=== PATIENT | male | born 1975 | race Hispanic/Latino ===

== ENCOUNTER 2019-09-03 17:04 | Inpatient (IN) ==
[~2019-09-03 17:04] MED LIST: DIPRIVAN 1% ONE; FENTANYL ONE; LUBRIFRESH PM OPH OINTMENT ONE; QUELICIN (DOSE) ONE; ROBINUL ONE; XYLOCAINE-MPF 2% ONE
[2019-09-03] MEDS ORDERED: ZEMURON ONE (17:18)
[2019-09-03] MEDS ORDERED: ROBINUL ONE (17:19)
[2019-09-03] MEDS ORDERED: LR 1,000 ML ONE ×2 (17:37→19:28)
[2019-09-03] MEDS ORDERED: KEFZOL 1 GM/D5W 0 GM/0 ML IVPB ONE (17:37)
[2019-09-03] MEDS ORDERED: VANCOMYCIN 1 GM/NS 1 GM/250 ML IVPB ONE (17:46)
[2019-09-03] MEDS ORDERED: ZOFRAN ONE (18:09)
[2019-09-03] MEDS ORDERED: FENTANYL ONE (18:10)
[2019-09-03] MEDS ORDERED: EPHEDRINE ONE (18:41)
[2019-09-03] MEDS ORDERED: SODIUM CHLORIDE 0.9% 10 ML ONE (18:42)
[2019-09-03] MEDS: DILAUDID ONE ×4 (19:27→19:45)
[2019-09-03] MEDS ORDERED: NORCO-10 ONE (19:27)
[2019-09-03] MEDS ORDERED: TYLENOL PO PRN (20:37)
[2019-09-03] MEDS ORDERED: SODIUM CHLORIDE 0.9% INJ PRN (20:45)
[2019-09-03] MEDS ORDERED: VANCOMYCIN IV PER PHARMACY MISC SCH (20:45)
[2019-09-03] MEDS ORDERED: PHENERGAN IV PRN (20:47)
[2019-09-03] MEDS ORDERED: D50W SYRINGE IV PRN (21:00)
[2019-09-03 22:09] LABS: BASO# 0.02 X1000 (0.0-0.2); BASO% 0.2 % (0.0-0.8); EOS# 0.16 X1000 (0.0-0.7); EOS% 1.7 % (0.0-10.0); HEMATOCRIT 36.7 % (42.0-52.0); HEMOGLOBIN 12.5 g/dL (14.0-18.0); IMM GRAN# 0.02 X1000 (0.0-0.04); IMM GRAN% 0.2 % (0.0-0.5); LYMPH# 1.15 X1000 (1.2-3.4); LYMPH% 12.6 % (20.5-51.1); MCH 28.8 PG (27-31); MCHC 34.1 g/dL (33-37); MCV 84.6 FL (81-99); MONO# 0.68 X1000 (0.11-0.59); MONO% 7.4 % (1.7-9.3); MPV 10.5 FL (7.4-10.4); NEUT# 7.13 X1000 (1.4-6.5); NEUT% 77.9 % (42.2-75.2); PLT 193 X1000 (130-400); RBC 4.34 XMIL (4.7-6.1); RDW 13.1 % (11.5-14.5); WBC 9.16 X1000 (4.8-10.8)
[2019-09-03 22:31] LABS: AGAP 11; BUN 17 mg/dL (8-22); CALCIUM 8.5 mg/dL (8.8-10.2); CHLORIDE 95 mmol/L (98-107); COSMO 271; ESTIMATED GFR > 60; GLUCOSE 188 mg/dL (70-104); POTASSIUM 3.5 mmol/L (3.5-5.1); SODIUM 132 mmol/L (136-145); TCO2 26 mmol/L (25-35)
[2019-09-03] MEDS: MOTRIN PO PRN (23:07)
[2019-09-03] MEDS: LR 1,000 ML IV SCH (23:07)
[2019-09-04] MEDS: VANCOMYCIN 2,000 MG in NS 500 ML IV SCH ×2 (00:37→13:02)
[2019-09-04] MEDS: HUMULIN R SUBQ SCH ×5 (00:57→22:44)
[2019-09-04] MEDS: NORCO-10 PO PRN ×4 (03:33→22:43)
--- NOTE | 2019-09-04 05:16 | OPERATIVE NOTE ---
PROCEDURE DATE: 09/03/2019 PREOPERATIVE DIAGNOSIS: Multiple soft tissue abscesses involving posterior mid neck, left axilla, anterior right chest, and left buttock. POSTOPERATIVE DIAGNOSIS: Multiple soft tissue abscesses involving posterior mid neck, left axilla, anterior right chest, and left buttock. PRINCIPAL PROCEDURE: Incision of multiple soft tissue abscesses involving the posterior neck, left axilla anterior right chest, and left buttock. SURGEON: Amber Kelly MD. ANESTHESIA: General. ESTIMATED BLOOD LOSS: 50 mL. DRAINS: None. INDICATIONS: Willam Davis is a 44-year-old male who was sent to my outpatient offices this afternoon by Dr. Michael Rahman because of the large abscess involving his mid posterior neck. Evidently, cultures suggested MRSA. He has had a history of skin abscesses in the past. He may have psoriasis. Incision and drainage of these multiple soft tissue abscesses was recommended. DESCRIPTION OF PROCEDURE: The patient was brought to the operating room, placed supine, received general anesthesia, and was intubated. He was placed supine initially with his left arm out to his side on an arm board. The area on his anterior right chest and left axilla were prepped and draped in a sterile field. I used a hemostat, and a 15 blade scalpel to thoroughly open these soft tissue abscesses anterior right chest and left axilla. Bleeding was controlled using the cautery. I used a curette to remove chronic inflammatory tissue. I thoroughly irrigated both abscesses and packed them with iodoform gauze. The patient was then placed in the left lateral decubitus position. I drained a soft tissue abscess involving his left buttock. Again, bleeding was controlled using the cautery. It was irrigated and was packed with iodoform gauze. The last thing I did was this large soft tissue abscess mid posterior neck. I used a transverse incision and drained this abscess thoroughly by opening it and completely irrigating it. Cultures were taken. Bleeding was controlled using the cautery, and I packed it again opened with iodoform gauze. Dry dressings were applied followed by Medipore tape to all incisions. He tolerated the procedure well with plans for him to go to the recovery room, and be hospitalized at least overnight. cc: Amber Kelly MD
[2019-09-04] MEDS: ALTACE PO SCH (08:32)
[2019-09-04] MEDS: GLUCOPHAGE PO SCH ×2 (08:32→16:11)
[2019-09-04] MEDS: MOTRIN PO PRN ×2 (08:45→20:06)
--- NOTE | 2019-09-04 12:38 | PROGRESS NOTE ---
DATE: 09/04/2019 Mr. Davis is a 44-year-old male who I initially saw in my outpatient office yesterday evening. He was taken to surgery for drainage of several abscesses involving his posterior neck, left axilla, left block, and anterior chest. He has had a history of recurrent skin infections. He saw Dr. Rahman, our family protection specialist prior to his presentation in our outpatient offices, and he reported that he had an MRSA infection of his neck. Cultures were taken at the time of surgery. Those are pending. I have him on IV vancomycin. His wounds were left open and packed open. Clinically, he looks good today. His heart rate is 68, blood pressure 111/62, and O2 saturation 99%. He is afebrile. He is tolerating a regular diet. He overall looks well. cc: Amber Kelly MD
[2019-09-04] MEDS: ULTRAM PO PRN (13:03)
[2019-09-04] MEDS: LR 1,000 ML IV SCH (20:06)
--- NOTE | 2019-09-04 20:22 | INFECTIOUS DISEASE CONSULT REP ---
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 He is in the hospital now. Dr. Kelly has incised and drained multiple abscesses on the patient yesterday. RECOMMENDATIONS: I agree with treating the patient with vancomycin. Some of the side effects of the antibiotic, including rash, renal toxicity, and ototoxicity, have been explained to the patient who agrees with treatment. I am going to go ahead and order immunoglobulin levels on the patient to see if he has an immunoglobulin deficiency which may be causing him to be having recurrent episodes of methicillin-resistant Staphylococcus aureus abscesses. I offered the patient 2 additional strategies for treatment. One would be called patient initiated treatment, which means the patient, at the first sign that he feels he is going to get one of these abscesses, he starts on an antibiotic, and I will write for him a prescription that he can get filled even before the abscesses recur, and that way he can get started right away on the antibiotic. The other option is to take a lower dose of an antibiotic that the organism is susceptible to, and the patient would take that daily with the hope of preventing the abscesses from forming. PRESENT ILLNESS: The patient's laboratory data shows a CBC with a white count of 9160, hemoglobin 12.5, and platelet count 193,000. Creatinine is 1. GFR is greater than 60. Cultures from the legs are pending. The patient tells me that he has had methicillin-resistant Staphylococcus aureus abscesses all over his body since childhood. I asked him about using more of an antibacterial soap like Dial, instead of a soap that has creams in it which is what he currently is using. He told me that when he tried using Dial, he still got the abscesses and his skin got dry. I am also going to check the patient's immunoglobulin levels and if they are low, he may be a candidate for immunoglobulin treatment. Also I told the patient good diabetic control would help to prevent abscesses. PAST MEDICAL HISTORY/REVIEW OF SYSTEMS: Eyes and ears: Hearing and vision are good. Neck: No stiffness. Respiratory: No cough or shortness of breath. Cardiac: No chest pain or palpitations. GI: No nausea, vomiting, or diarrhea. : No dysuria or flank pain. Neurologic: No seizures. No loss of motor or sensory function. PREVIOUS HOSPITALIZATIONS AND OPERATIONS: The only surgeries he has had are to drain one of his abscesses. MEDICAL DISEASES: Positive for diabetes mellitus. Negative for hypertension. INFECTIOUS DISEASE HISTORY: Negative for pneumonia and UTI. Positive for methicillin-resistant Staphylococcus aureus abscesses. FAMILY HISTORY: Positive for diabetes mellitus and cancer. SOCIAL HISTORY: The patient is . He lives in [place]. He has a dog as a pet. He smokes cigarettes. He does not drink alcoholic beverages or abuse drugs. He works at [employer]. PHYSICAL EXAMINATION: Vital signs: Temperature is 98.4 degrees, pulse 70, respirations 24, blood pressure 112/57. The patient weighs 220 pounds. General: This is a healthy- appearing, middle- aged male. He is in no acute distress. Head, eyes, ears, nose, throat: He can hear my spoken words and see near objects. He does not have any white coating on his tongue. Neck: No meningismus. Lungs: Clear to auscultation. Cardiovascular: Heart rate is regular. Abdomen: Soft and nontender. Neurologic: The patient is alert. He can move his extremities. There is no tremor. His memory as regarding his medical history is intact. Integument: The patient has multiple dressings on his body where he had drainage of his abscesses yesterday, performed by Dr. Kelly. Thank you for the consult. cc: MD Amber Zafar MD [facility]
[2019-09-05] MEDS: VANCOMYCIN 2,000 MG in NS 500 ML IV SCH ×2 (00:04→12:58)
[2019-09-05] MEDS: ULTRAM PO PRN ×3 (02:10→16:12)
[2019-09-05] MEDS: MOTRIN PO PRN (05:28)
[2019-09-05] MEDS: NORCO-10 PO PRN ×3 (07:01→18:39)
[2019-09-05] MEDS: HUMULIN R SUBQ SCH ×3 (07:02→17:08)
[2019-09-05] MEDS: GLUCOPHAGE PO SCH ×2 (08:30→16:12)
[2019-09-05] MEDS: ALTACE PO SCH (08:30)
[2019-09-05 15:51] VITALS: BP 132/74
--- NOTE | 2019-09-05 21:31 | INFECTIOUS DISEASE PROGRESS NO ---
DATE: 09/05/2019 PRESENT ILLNESS: Mr. Davis is being treated for multiple abscesses which have grown gram- positive cocci. He has had incision of multiple soft tissue abscesses to the posterior neck, left axilla, right chest, and left buttock, by Dr. Kelly. MEDICATIONS: He is receiving IV vancomycin per pharmacy dosing. PHYSICAL EXAMINATION: Vital Signs: Temperature is 98.4 degrees, pulse rate 75, respiratory rate 20, blood pressure 114/71, O2 saturation 97% on room air. General: This is a fairly healthy- appearing, middle-aged gentleman who is sitting up in the bed, currently in no acute distress. HEENT: Atraumatic, normocephalic. Oral mucous membranes are pink and moist. Conjunctivae are pink. Neck: Supple. Trachea is midline. Cardiovascular: Heart rate is regular. S1, S2 noted. Respiratory: Lung sounds are bilaterally clear to auscultation. No work of breathing is noted. Abdomen: Soft, flat, and nontender. Bowel sounds are active. Integumentary: There are multiple dressings in place to his posterior neck, left axilla, right chest, and left buttock. These were not removed. Neurologic: He is awake, alert, oriented, and able to ambulate independently. LABORATORY AND X-RAY: His immunoglobulins came back with an IgA of 317, IgG of 639, and IgM of 99. So far, the neck culture is growing a gram-positive coccus on the preliminary report. No imaging reports today. ASSESSMENT AND PLAN: Mr. Davis apparently has had multiple issues with methicillin-resistant Staphylococcus aureus abscesses since childhood, and is status post incision and drainage. At this point, he does have vancomycin per pharmacy dosing which we will continue. At this point, we have yet to get the cultures back. However, the patient is anxious to go home. We will provide doxycycline for him at home until the cultures come back. A prescription for 4 days worth of doxycycline 100 mg p.o. every 12 hours has been sent to his pharmacy. Once the final cultures are back, we will adjust his medications appropriately and then see him back in the office. His immunoglobulin levels show a low IgG; however, this is not low enough to merit a transfusion. These plans have been discussed with and recommended by Dr. Fields. COMORBIDITIES: For Mr. Davis, include diabetes mellitus and cigarette smoking. Dictated by RENAN Lopez for Marshall Fields MD cc: MD Amber Zafar MD [facility]
--- NOTE | 2019-09-06 13:42 | DISCHARGE SUMMARY ---
ADMISSION DATE: 09/03/2019 DISCHARGE DATE: 09/05/2019 ADMITTING DIAGNOSIS: Soft tissue MRSA infection posterior neck, left axilla, anterior right chest and left buttock. DISCHARGE DIAGNOSIS: Soft tissue MRSA infection posterior neck, left axilla, anterior right chest and left buttock. PRINCIPAL PROCEDURE: Incision and drainage of multiple skin abscesses as described above. DISCHARGE DIET: Is regular. DISCHARGE DISPOSITION: He is to return to our outpatient offices in about 10 days. DISCHARGE DISABILITIES: Full. DISCHARGE MEDICATIONS: Doxycycline 100 mg p.o. b.i.d. HOSPITAL COURSE: Mr. Willam Davis is a 44-year-old male who was sent by Michael Rahman to our outpatient offices because of an MRSA soft tissue infection posterior mid neck. On exam, he also had several other soft tissue abscesses in the anterior right chest, left axilla and left block. He was sent to outpatient surgery from my outpatient offices. On the evening of his presentation 09/03/2019, he went to the operating room and underwent multiple incision and drainages of soft tissue abscesses. These wounds were packed open. He went to the recovery room and then was hospitalized receiving IV vancomycin. I ask Infectious Disease Dr. Marshall Fields to see the patient because of his multiple skin infections. He recommended doxycycline 100 mg p.o. b.i.d. at discharge. On hospital day 2, it was felt that he could be discharged. All his packing was removed from his wounds. His wounds were cleansed with hydrogen peroxide and redressed. I discussed wound care with him. He knows to contact me with any problems such as increasing pain at his incision sites, swelling, fever or purulent drainage. He will return to our outpatient offices after the . cc: Amber Kelly MD
== END 2019-09-05 19:02 | disposition home or self-care (01) | DRG 580 ==
LOC: OR 17:04 → 4N 19:42
PROVIDERS: ADMIT Surgery; ATTEND Surgery